=== PATIENT | female | born 1975 | race African-American/Black ===

== ENCOUNTER 2016-11-04 00:57 | Emergency (ER) | payer MEDICARE ==
[~2016-11-04] VITALS: Ht 162.6 cm; Wt 66.0 kg
[2016-11-04] MEDS ORDERED: SODIUM CHLORIDE 0.9% 250 ML IV ONE (02:50)
[2016-11-04] MEDS ORDERED: DIPHENHYDRAMINE 50MG/ML VIAL IV ONE (03:00)
[2016-11-04] MEDS ORDERED: METOCLOPRAMIDE HCL 10MG/2ML VIAL IV ONE (03:00)
[2016-11-04 03:18] LABS: BASOPHILS % 0.5 % (0.0-2.0); EOSINOPHILS % 2.5 % (0.0-5.0); HEMATOCRIT. 37.5 % (36.0-48.0); LYMPHOCYTES % 16.9 % (20.0-50.0); MEAN CORPUSCULAR HEMOGLOBIN 34.4 pg (28.0-32.0); MEAN CORPUSCULAR VOLUME 98.7 fL (81.0-99.0); MEAN PLATELET VOLUME 10.6 fl (7.4-10.4); MONOCYTES % 7.4 % (2.0-8.0); NEUTROPHILS % 72.7 % (40.0-76.0); PLATELET 302 x1000/uL (130-400); RED BLOOD CELL COUNT 3.79 mill/uL (4.2-5.4); RED CELL DISTRIBUTION WIDTH 13.1 % (11.6-14.6)
[2016-11-04 04:28] VITALS: BP 125/77
== END 2016-11-04 04:10 | disposition left against medical advice (07) ==
LOC: ER 00:57
DX: R06.02 Shortness of breath (principal); R51 Headache; R94.31 Abnormal electrocardiogram [ECG] [EKG]; R11.0 Nausea; H53.149 Visual discomfort, unspecified; F17.210 Nicotine dependence, cigarettes, uncomplicated
CPT/HCPCS: 36415; 71010; 85025; 93005; 96361; 96374; 96375; 99285; J1200; J2765; J7050